=== PATIENT | male | born 1975 | race Asian ===

== ENCOUNTER 2025-06-06 10:03 | Outpatient (CLI) | payer SELFPAY ==
--- NOTE | 2025-06-06 13:35 | VASCULAR REPORT ---
Carotid Duplex Clinical History: Optic disc swelling Comparison: None Technique: Duplex Doppler evaluation of the extracranial carotid and vertebral arteries including color Doppler and spectral/pulsed waveform analysis was performed. Findings: RIGHT SIDE: The peak systolic velocities are 70 cm/s in the CCA, 78 cm/s in the ICA. The ICA/CCA ratio is 1.11. The external carotid artery is patent with peak systolic velocity of 79 cm/s proximally. There is appropriate antegrade flow in the right subclavian artery. Multiphasic flow in the right vertebral artery. LEFT SIDE: The peak systolic velocities are 80 cm/s in the CCA, 77 cm/s in the ICA. The ICA/CCA ratio is 0.96. The external carotid artery is patent with peak systolic velocity of 90 cm/s proximally. Multiphasic flow in the left subclavian artery. There is appropriate antegrade flow in the left vertebral artery. IMPRESSION: Less than 50% stenosis of bilateral carotid artery system. Reference: Radiology 2003; [id number]:[id number] Normal ICA PSV is <125 cm/sec and no plaque or intimal thickening is visible sonographically addition al criteria include ICA/CCA PSV ratio <2.0 and ICA EDV <40 cm/sec <50% ICA stenosis ICA PSV is <125 cm/sec and plaque or intimal thickening is visible sonographically additional criteria include ICA/CCA PSV ratio <2.0 and ICA EDV <40 cm/sec 50-69% ICA stenosis ICA PSV is 125-230 cm/sec and plaque is visible sonographically additional criter ia include ICA/CCA PSV ratio of 2.0-4.0 and ICA EDV of 40-100 cm/sec 70% ICA stenosis but less than near occlusion ICA PSV is >230 cm/sec and visible plaque and luminal narrowing are seen at young-scale and color Doppler ultrasound (the higher the Doppler parameters lie above the threshold of 230 cm/sec, the greater the likelihood of severe disease) additional criteria include ICA/CCA PSV ratio >4 and ICA EDV >100 cm/sec
== END 2025-06-06 23:59 | disposition home or self-care (01) ==
LOC: VAS 10:03
PROVIDERS: ATTEND Nurse Practitioner
DX: Q14.2 Congenital malformation of optic disc (principal)
CPT/HCPCS: 93880